=== PATIENT | female | born 1970 | race Caucasian/White ===

== ENCOUNTER 2019-05-20 07:02 | Day surgery (SDC) | payer OTHER ==
[~2019-05-20 07:02] MED LIST: ACIDOPHILUS1 EAC1 PO; BIOTIN5000 MCG PO; CALCIUM500 M1 PO; CANASA1000 MG RECTAL; FOLTX TABLET1 EACH PO; PREDNISOLO20 MG/5 ML PO; STELARA90 MG/1 ML
[2019-05-20] MEDS ORDERED: PERCOCET 5-3251 EACH PO (16:26)
[2019-05-20] MEDS ORDERED: RECTICARE30 GM TOP (16:27)
[2019-05-20] MEDS ORDERED: NEURONTIN300 MG PO (16:27)
== END 2019-05-20 17:00 | disposition home or self-care (01) ==
LOC: CIR.AMB 07:02
DX: K60.3 Anal fistula (principal); K62.4 Stenosis of anus and rectum